=== PATIENT | female | born 1960 | race Caucasian/White ===

== ENCOUNTER → 2018-05-02 11:03 | Outpatient (CLI) | payer OTHER, SELFPAY ==
[2018-05-02 11:42] LABS: Add Manual Diff / Slide Review NO; Basophils Percent Auto 0.9 % (0-2); Eosinophils Percent Auto 2.5 % (2-4); Hemoglobin 13.5 g/dL (12.0-16.0); Lymphocytes Percent Auto 36.5 % (25-40); Mean Corpuscular HGB Conc 33.8 % (30-36); Mean Corpuscular Volume 83.1 fL (80-100); Monocytes Percent Auto 8.7 % (3-14); Neutrophils Absolute Auto 2900 /uL (3000-5900); Neutrophils Percent Auto 51.4 % (50-75); Platelet Count 248 X10^3/uL (150-400); Red Blood Cell Count 4.82 X10^6/uL (4.0-5.2); Red Cell Distribution Width 13.6 % (11.6-14.8); White Blood Cell Count 5.7 X10^3/uL (4.5-11.0)
[2018-05-02 11:51] LABS: Alanine Aminotransferase 29 IU/L (9-52); Albumin 4.1 g/dL (3.5-5.0); Albumin Globulin Ratio 1.4 (1.0-2.8); Alkaline Phosphatase 46 U/L (38-126); Aspartate Aminotransferase 24 IU/L (14-36); BUN Creatinine Ratio 33.3 (6-22); Bilirubin Total 0.5 mg/dL (0.2-1.3); Blood Urea Nitrogen 20 mg/dL (7-17); Calcium 9.7 mg/dL (8.4-10.2); Carbon Dioxide 26 mmol/L (22-32); Chloride 103 mmol/L (98-107); Estimated Glomerular Filt Rate > 60.0 mL/min (>60); Glucose 95 mg/dL (70-100); HEMOLYSIS < 15 (0-50); Lactate Dehydrogenase 390 U/L (313-618); Potassium 4.5 mmol/L (3.4-5.1); Sodium 137 mmol/L (137-145); Total Protein 7.1 g/dL (6.3-8.2)
== END ==
PROVIDERS: Family Provider Internal Medicine; PCP Internal Medicine; Visit Provider Nurse Practitioner Gerontology
DX: C82.90 Follicular lymphoma, unspecified, unspecified site (principal)
CPT/HCPCS: 36415; 80053; 83615; 85025

== ENCOUNTER → 2019-03-22 09:19 | Outpatient (CLI) | payer OTHER, SELFPAY ==
--- NOTE | 2019-03-22 09:23 | DI.CT.S_ITS ---
PROCEDURE: CT CHEST ABD PEL W CON INDICATIONS: f/u lymphoma TECHNIQUE: After the administration of oral and intravenous contrast, 5 mm thick sections acquired from the lung apices to the symphysis. 5 mm coronal and sagittal reformats were performed, with additional 7 mm coronal MIP reformats through the lungs. For radiation dose reduction, the following was used: automated exposure control, adjustment of mA and/or kV according to patient size. COMPARISON: [facility], CT, ABDOMEN/PELVIS WITH CONTRAST, 03/12/2017, 10:58. [facility], CT, CHEST/ABD/PEL WITH CONTRAST, 09/15/2017, 12:01. FINDINGS: Image quality: Excellent. CHEST: Lungs and pleura: No acute airspace opacities. No pleural effusions or pneumothorax. Central and peripheral airways appear patent and normal in caliber. Mediastinum: Heart size is normal. No pericardial effusion. No mediastinal or hilar adenopathy by size criteria. Thoracic aorta and central pulmonary arteries are normal in size. Esophagus is normal in caliber. No hiatal hernia. Chest wall: No new axillary or supraclavicular adenopathy by size criteria but at the right axilla several previously identified moderately enlarged nodes have slightly enlarged further, with maximal axial dimension having increased by approximately 2-3 mm. The largest node in this area measures 2.1 cm AP and 2.8 cm transverse (series 2 image 16). Thyroid gland appears normal. ABDOMEN: Solid organs: Liver is normal in size and enhancement. Gallbladder appears normal. Biliary system is non dilated. Pancreas enhances normally. Spleen is normal in size and enhancement. No adrenal nodules. Kidneys demonstrate normal size and enhancement, without hydronephrosis. Peritoneum and bowel: Bowel loops demonstrate normal wall thickness and caliber. No free fluid or air. Nodes and vessels: No new retroperitoneal or mesenteric adenopathy by size criteria, and clustered lymph nodes that are mildly enlarged at the periaortic retroperitoneum and within the root of the small bowel mesentery at this axial level have not changed. Aorta and inferior vena cava are normal in size. Miscellaneous: No ventral hernias. PELVIS: Genitourinary: Bladder wall thickness is normal. Miscellaneous: No inguinal hernias or adenopathy. Bones: No suspicious bony lesions. No vertebral body compression fractures. IMPRESSION: 1. Several moderately enlarged nodes in the right axilla have mildly increased in size by only approximately 3-4 mm and no new lymph nodes in this area have developed. 2. There is stable appearance of an increased number of small nodes and several mildly enlarged nodes also previously present at the periaortic retroperitoneum and the adjacent root of the small bowel mesentery at the axial level of the mid kidneys, none of which appear to have enlarged. Dictated by: Mike Chin M.D. on 03/22/2019 at 13:12 Approved by: Mike Chin M.D. on 03/22/2019 at 13:20
[2019-03-22 10:42] LABS: Add Manual Diff / Slide Review NO; Basophils Absolute Auto 100 /uL (0-100); Basophils Percent Auto 1.4 % (0-2); Eosinophils Absolute Auto 200 /uL (0-450); Eosinophils Percent Auto 3.8 % (2-4); Hematocrit 41.2 % (36-46); Lymphocytes Absolute Auto 1800 /uL (1100-4500); Lymphocytes Percent Auto 42.1 % (25-40); Mean Corpuscular Volume 82.2 fL (80-100); Monocytes Absolute Auto 300 /uL (0-900); Monocytes Percent Auto 8.2 % (3-14); Neutrophils Absolute Auto 1900 /uL (1500-7000); Neutrophils Percent Auto 44.5 % (50-75); Platelet Count 262 X10^3/uL (150-400); Red Blood Cell Count 5.01 X10^6/uL (4.0-5.2); Red Cell Distribution Width 13.3 % (11.6-14.8); White Blood Cell Count 4.2 X10^3/uL (4.5-11.0)
[2019-03-22 10:55] LABS: Alanine Aminotransferase 23 IU/L (9-52); Albumin 4.1 g/dL (3.5-5.0); Albumin Globulin Ratio 1.5 (1.0-2.8); Alkaline Phosphatase 48 U/L (38-126); Aspartate Aminotransferase 26 IU/L (14-36); BUN Creatinine Ratio 18.6 (6-22); Bilirubin Total 0.6 mg/dL (0.2-1.3); Blood Urea Nitrogen 13 mg/dL (7-17); Calcium 9.5 mg/dL (8.4-10.2); Carbon Dioxide 27 mmol/L (22-32); Chloride 105 mmol/L (98-107); Estimated Glomerular Filt Rate > 60.0 mL/min (>60); Globulin 2.8 g/dL (1.7-4.1); Glucose 78 mg/dL (70-100); HEMOLYSIS < 15 (0-50); Lactate Dehydrogenase 404 U/L (313-618); Potassium 3.8 mmol/L (3.4-5.1); Sodium 139 mmol/L (137-145); Total Protein 6.9 g/dL (6.3-8.2)
[2019-03-22 10:56] LABS: Cholesterol 190 mg/dL (140-199); HDL Cholesterol 51 mg/dL (40-60); LDL Cholesterol Calculated 129 mg/dL (<100); Triglycerides 50 mg/dL (35-150)
== END ==
PROVIDERS: Family Provider Internal Medicine; PCP Family Medicine
DX: C82.90 Follicular lymphoma, unspecified, unspecified site (principal); Z13.220 Encounter for screening for lipoid disorders
CPT/HCPCS: 36415; 71260; 74177; 80053; 80061; 83615; 85025; Q9967

== ENCOUNTER → 2019-03-29 11:00 | Oncology outpatient (ONC) | payer OTHER, SELFPAY ==
[2019-03-07 09:58] VITALS: BP 136/79; PULSE 62; RESP 16; TEMP 36.9; O2SAT 95
--- NOTE | 2019-03-07 10:11 | ONC.PN ---
PN -Subjective Interval history: Diagnosis: Follicular lymphoma, grade 1-2, clinically stage III Previous treatment: None Interval history: The patient is a 59-year-old woman who returns today for follow-up. She was diagnosed with follicular lymphoma based on excision of an axillary lymph node about 2 years ago. She has not had any symptoms related to her lymphoma has not required any therapy. About 2 weeks ago, she had feeling of fullness or pressure in the axilla bilaterally and in the inguinal area as well as in the mid left abdomen. She had some intermittent burning sensation in these areas. Over the last few days, the symptoms have begun to subside. She has not had any fevers or chills. She has had some hot flashes but no night sweats. Appetite has been good. She has not been losing any weight. No nausea or vomiting. No diarrhea. She has not noticed any shortness of breath or cough. She has not had any recent infections or viral syndromes. She denies any other changes in her health. Her past medical history is otherwise fairly unremarkable. She did have a history of colitis many years ago. She has had some prior fractures. Her only medications include oxybutynin and Celexa. Social history: She is . She and her work in [employer] business. She quit smoking in 2010. She denies any alcohol use. - Patient Self-Reported Symptoms SR Cardiovascular issues: Shortness of breath with activity or lying flat SR Hematologic issues: Swollen lymph nodes SR Endocrine issues: Hot flashes Home Medications and Allergies Home Medications Medication Instructions Recorded Confirmed Type Vitamin B Complex4 (#B COMPLEX) 1 tab PO #0 05/18/11 09/12/18 History CHOLECALCIFEROL (VITAMIN D3) 5,000 units PO QDAY #0 11/23/12 09/12/18 History (VITAMIN D) fluticasone propionate 2 spray INTRANASAL QDAY #1 inh 12/20/12 09/12/18 Rx aspirin 81 mg PO HS #0 04/19/17 09/12/18 History [oregano oil] #0 12/13/17 09/12/18 History oxybutynin chloride 5 mg tablet 5 mg PO BID #180 tab 02/13/19 Rx citalopram [Celexa] 10 mg PO QDAY 03/07/19 History krill oil 03/07/19 History [id number] acid 03/07/19 History [ Multi] vitamin E 180 03/07/19 History Allergies Allergy/AdvReac Type Severity Reaction Status Date / Time No Known Drug Allergies Allergy Unverified 09/12/18 10:02 Exam Vital signs: Vital Signs Temp Pulse Resp BP Pulse Ox 03/07/19 09:58 98.4 F 62 16 136/79 95 Intake and Output 03/06/19 03/07/19 03/07/19 23:59 07:59 15:59 Other: Weight 75.3 kg Patient Weight 03/07/19 23:59 Weight 75.3 kg - Constitutional positive no acute distress, positive average body habitus - Routine HEENT Exam Head: Present: normocephalic, atraumatic Eye: Present: EOMI, PERRL. Absent: conjunctival icterus, scleral injection ENT: Present: mucous membranes moist, oropharynx clear - Routine Neck Exam Present: supple. Absent: lymphadenopathy, thyromegaly - Routine Chest/Breast/Axilla Exam Axillae: Absent: lymphadenopathy - Routine Respiratory Exam Present: Clear to auscultation bilaterally. Absent: rales, wheezes - Routine Cardiovascular Exam Present: RRR, S1, S2. Absent: murmur - Routine Abdominal Exam Present: soft, normoactive bowel sounds. Absent: tenderness, organomegaly, mass Comments: There is no inguinal adenopathy. - Routine Extremities Exam Absent: cyanosis, clubbing, edema - Routine Skin Exam Present: intact. Absent: petechiae, rash - Routine Neurological Exam Present: alert, oriented X3 - Routine Psychiatric Exam Present: normal affect, normal thought process Assessment and Plan (1) Follicular lymphoma Current visit: No Status: Chronic 59-year-old woman with a history of follicular lymphoma. She has had some recent discomfort in the axilla and inguinal areas. I do not feel any adenopathy on exam. It has been more than a year since her last visit. I think it is reasonable to get a CT scan to evaluate the status of her adenopathy. She will return to clinic in about 3 weeks or so for follow-up.
[2019-03-29 11:56] VITALS: BP 128/77; PULSE 52; RESP 18; TEMP 36.7; O2SAT 99
--- NOTE | 2019-03-29 12:19 | P.PNONC_ITS ---
PN -Subjective Interval history: Diagnosis: Follicular lymphoma, grade 1-2, clinically stage III Previous treatment: None Interval history: The patient is a 59-year-old woman who returns today for follow-up. She was diagnosed with follicular lymphoma based on excision of an axillary lymph node about 2 years ago. She has not had any symptoms related to her lymphoma has not required any therapy. Recently, she had noticed some feeling of fullness and pressure in the axilla and in the groin. She was not having any fevers chills or night sweats. She is not having any persistent pain although she did have occasional episodes of a burning-like pain in the lymph nodes. No shortness of breath or cough. No GI complaints. She did not have any other changes in her health. She did have a CT scan done that showed slight enlargement of her right axillary node by 3 or 4 mm but no new adenopathy and no other progression. Over the last week or 2, the feeling of fullness has subsided. Her past medical history is otherwise fairly unremarkable. She did have a history of colitis many years ago. She has had some prior fractures. Her only medications include oxybutynin and Celexa. Social history: She is . She and her work in [employer] business. She quit smoking in 2010. She denies any alcohol use. - Patient Self-Reported Symptoms SR Cardiovascular issues: Shortness of breath with activity or lying flat SR Hematologic issues: Swollen lymph nodes SR Endocrine issues: Hot flashes Home Medications and Allergies Home Medications Medication Instructions Recorded Confirmed Type Vitamin B Complex4 (#B COMPLEX) 1 tab PO #0 05/18/11 03/14/19 History CHOLECALCIFEROL (VITAMIN D3) 5,000 units PO QDAY #0 11/23/12 03/29/19 History (VITAMIN D) fluticasone propionate 2 spray INTRANASAL QDAY #1 inh 12/20/12 03/29/19 Rx aspirin 81 mg PO HS #0 04/19/17 03/29/19 History [oregano oil] #0 12/13/17 03/14/19 History citalopram [Celexa] 10 mg PO QDAY 03/07/19 03/29/19 History krill oil 500 mg DAILY 03/07/19 03/29/19 History [id number] acid 800 mg DAILY 03/07/19 03/29/19 History [ Multi] vitamin E 180 03/07/19 03/14/19 History oxybutynin chloride 5 mg PO DAILY 03/29/19 03/29/19 History Allergies Allergy/AdvReac Type Severity Reaction Status Date / Time No Known Drug Allergies Allergy Unverified 09/12/18 10:02 Exam Vital signs: Vital Signs Temp Pulse Resp BP Pulse Ox 03/29/19 11:56 98.1 F 52 L 18 128/77 99 Intake and Output 03/28/19 03/29/19 03/29/19 23:59 07:59 15:59 Other: Weight 74.3 kg Patient Weight 03/29/19 23:59 Weight 74.3 kg - Constitutional positive no acute distress, positive average body habitus Comments: She is not further examined. Results - Imaging CT scan - abdomen: image reviewed CT scan - chest: image reviewed CT scan - pelvis: image reviewed (Prominent right axillary adenopathy.) Assessment and Plan (1) Follicular lymphoma Current visit: No Status: Chronic 59-year-old woman with a history of follicular lymphoma. Her CT scan shows minimal change in her axillary adenopathy and no new areas of progression. She has no indication for treatment. She will return to clinic in about 6 months for follow-up.
--- NOTE | 2019-07-25 15:53 | PC.NURSE ---
SECOND OPINION REFERRAL REQUEST: PATIENT CALLED REQUESTING DR. SR TO FAX A REFERRAL FOR A SECOND OPINION TO [facility], ATTN: ARUN, PHONE: [phone], FAX [phone]. REQUEST MADE WITH THIS NOTE TO DR. SR TO ADD TO ORDERS PANEL AND TO DORYS TO SCHEDULE.
--- NOTE | 2019-07-31 16:19 | ONC.SCHED ---
Tried calling patient to let her know I have the referral entered and I am in the process of sending the paperwork now.
== END ==
PROVIDERS: Family Provider Internal Medicine; PCP Family Medicine
DX: C82.24 Follicular lymphoma grade III, unspecified, lymph nodes of axilla and upper limb (principal)
CPT/HCPCS: 99214

== ENCOUNTER → 2019-04-12 09:00 | Outpatient (CLI) | payer OTHER, SELFPAY ==
--- NOTE | 2019-04-12 | DI.MG.S_ITS ---
BILATERAL DIGITAL SCREENING MAMMOGRAM 3D/2D WITH CAD: 04/12/2019 CLINICAL: Routine screening. Comparison is made to exams dated: 01/19/2018 mammogram, 12/07/2016 mammogram, and 11/27/2015 mammogram, and CT Chest Abdomen Pelvis 03/22/19 - [facility]. The tissue of both breasts is heterogeneously dense. This may lower the sensitivity of mammography. Current study was also evaluated with a Computer Aided Detection (CAD) system. There is an oval enlarged node in the right breast posterior depth superior region seen on the mediolateral oblique view only. This is increased in size. No other significant masses, calcifications, or other findings are seen in either breast. IMPRESSION: NEGATIVE The oval enlarged nodes in the right axilla are consistent with known lymphoma. Clinical correlation is recommended including with recent CT Chest Abdomen Pelvis from 03/22/19. There is no mammographic evidence of malignancy in the right or left breast. A 1 year screening mammogram is recommended. This exam was interpreted at Station ID: [id number]. NOTE: For mammograms, a report in lay terms will be sent to the patient. Approximately 15% of breast malignancies will not be visualized mammographically. In the management of a palpable breast mass, a negative mammogram must not discourage biopsy of a clinically suspicious lesion. Electronically Signed By: Joe hopson/:04/12/2019 11:08:22 copy to: Hina Vaughn letter sent: Clinical Evaluation ACR BI-RADS Category 1: Negative 3341F
== END ==
PROVIDERS: PCP Family Medicine; Visit Provider Family Medicine
DX: Z12.31 Encounter for screening mammogram for malignant neoplasm of breast (principal)
CPT/HCPCS: 77063; 77067

== ENCOUNTER 2020-05-01 19:57 | Emergency (ER) | payer OTHER, SELFPAY ==
[2020-05-01 20:08] VITALS: BP 153/65; PULSE 76; RESP 18; TEMP 36.6; O2SAT 98
[2020-05-01] MEDS: DOXYCYCLINE HYCLATE 100 MG TABLET PO (20:17)
--- NOTE | 2020-05-01 20:17 | ED_ITS ---
HPI - Wound/Laceration <ASHLEY Crook - Last Filed: 05/01/20 20:42> General Chief Complaint: Wound/Laceration Stated Complaint: LEFT THUMB LACERATION Time Seen by Provider: 05/01/20 20:03 Source: patient Mode of arrival: Ambulatory Limitations: no limitations History of Present Illness HPI narrative: 60-year-old female presents to the emergency department for increasing redness to her laceration on her left thumb. She states 3 days ago she was skinning a black bear when she cut herself in the thumb with a knife. She noticed increased redness and swelling yesterday that worsened today. Patient noticed increasing tenderness to this area. She reports clear watery discharge, denies past. Patient denies fevers, chills, difficulty moving her thumb, chest pain, shortness of breath, dizziness, nausea, vomiting, diarrhea, or any other concerns. Related Data Home Medications Medication Instructions Recorded Confirmed Vitamin B Complex4 (#B COMPLEX) 1 tab PO #0 05/18/11 03/14/19 CHOLECALCIFEROL (VITAMIN D3) 5,000 units PO QDAY #0 11/23/12 03/29/19 (VITAMIN D) aspirin 81 mg PO HS #0 04/19/17 03/29/19 [oregano oil] #0 12/13/17 03/14/19 krill oil 500 mg DAILY 03/07/19 03/29/19 [id number] acid 800 mg DAILY 03/07/19 03/29/19 [ Multi] vitamin E 180 03/07/19 03/14/19 Previous Rx's Medication Instructions Recorded fluticasone propionate 2 spray INTRANASAL QDAY #1 inh 12/20/12 oxybutynin chloride 5 mg tablet 5 mg PO BID #180 tab 04/01/20 citalopram 20 mg tablet 10 mg PO QDAY #45 tab 04/10/20 doxycycline hyclate 100 mg PO BID 7 Days #14 cap 05/01/20 Allergies Allergy/AdvReac Type Severity Reaction Status Date / Time No Known Drug Allergies Allergy Unverified 09/12/18 10:02 Review of Systems <ASHLEY Crook - Last Filed: 05/01/20 20:42> Review of Systems Narrative: REVIEW OF SYSTEMS: GENERAL: Denies fever or chills. HENT: Denies head trauma. CARDIOVASCULAR: Denies syncope. MUSCULOSKELETAL: Denies weakness, or deformities. INTEGUMENTARY: Complains of laceration to thumb, see HPI. NEURO: Denies numbness or tingling. Patient History <ASHLEY Crook - Last Filed: 05/01/20 20:42> Medical History Chicken pox (Resolved ~1961) Colitis (Chronic ~2010) Depression (Chronic) Heavy menstrual period (Chronic ~1969) Measles (Resolved ~1959) Mumps (Resolved ~1960) Surgical History Anesthesia (Resolved) History of elbow surgery (Resolved ~1973) History of foot surgery (Resolved ~1977) Lymphoma (Resolved ~2016) Status post hysterectomy (~1997) Status post ovarian cystectomy (~1987) Family History Father Age: 82 Heart disease High cholesterol Mini stroke Diabetes mellitus Dementia Grandfather Heart disease Stroke Grandmother Heart disease High cholesterol Mental health problem Stroke Mother Age: 79 A-fib Hypertension Asthma Grandfather Heart disease Heart attack Sister Age: 50 Hypertension Depression Asthma Grandmother No problems noted. Social History Smoking Status: Former smoker Smoking Status: Former smoker Substance Use Type: does not use Exam <ASHLEY Crook - Last Filed: 05/01/20 20:42> Initial Vital Signs Initial Vital Signs: Vital Signs Temperature 98 F 05/01/20 20:08 Pulse Rate 76 05/01/20 20:08 Respiratory Rate 18 05/01/20 20:08 Blood Pressure 153/65 H 05/01/20 20:08 Pulse Oximetry 98 05/01/20 20:08 PHYSICAL EXAMINATION: GENERAL: Well groomed, alert, and cooperative. Answers questions promptly and appropriately. Vital signs noted. HENT: Normocephalic, atraumatic. RESPIRATORY: Normal respiratory rate, trachea midline, airway patent. No stridor, nasal flaring or accessory muscle use. MUSCULOSKELETAL: Normal gait and coordination. Equal tone and mass bilaterally. EXTREMITIES: CMS intact. Moves all extremities. SKIN: Warm, dry, soft, appropriate color for ethnicity. 3 cm laceration noted t o the radial aspect of distal phalanx of the right thumb that slightly extends into the crease of the DIP joint. Small amount of swelling, surrounding erythema, and no fluctuance or purulent discharge. Increased temp to palpation of this area. No tenderness to palpation of ulnar aspect of DIP joint. NEURO: Alert and Oriented X 3. Good coordination. PSYCH: Appropriate affect and mood. <Jonas Trejo MD - Last Filed: 05/02/20 02:29> Initial Vital Signs Initial Vital Signs: Vital Signs Temperature 98 F 05/01/20 20:08 Pulse Rate 76 05/01/20 20:08 Respiratory Rate 18 05/01/20 20:08 Blood Pressure 153/65 H 05/01/20 20:08 Pulse Oximetry 98 05/01/20 20:08 Course <ASHLEY Crook - Last Filed: 05/01/20 20:42> Course Course Narrative: Patient was given a dose of antibiotics in the emergency department. Orders Ordered: Discontinued Medications Doxycycline Hyclate (Vibramycin) 100 mg PO NOW ONE Stop: 05/01/20 20:13 Last Admin: 05/01/20 20:17 Dose: 100 mg [facility] Vital Signs Vital signs: Vital Signs - 8 hr 05/01/20 20:08 05/01/20 20:32 Temperature 98 F Pulse Rate 76 89 Respiratory Rate 18 16 Blood Pressure 153/65 H 149/64 H Pulse Oximetry 98 99 <Jonas Trejo MD - Last Filed: 05/02/20 02:29> Orders Ordered: Discontinued Medications Doxycycline Hyclate (Vibramycin) 100 mg PO NOW ONE Stop: 05/01/20 20:13 Last Admin: 05/01/20 20:17 Dose: 100 mg [facility] Vital Signs Vital signs: Vital Signs - 8 hr 05/01/20 20:08 05/01/20 20:32 Temperature 98 F Pulse Rate 76 89 Respiratory Rate 18 16 Blood Pressure 153/65 H 149/64 H Pulse Oximetry 98 99 MDM - Wound/Laceration <ASHLEY Crook - Last Filed: 05/01/20 20:42> Medical Records Attestation: I reviewed the patient's medical records. Lab Data Attestation: I reviewed the patient's lab results. MDM Narrative Medical decision making narrative: 60-year-old female presents emergency department for increased redness around the laceration of right. Concern for cellulitis due to visualized redness, tenderness, and increased temp. Discussed with patient doxycycline is advised given involvement of bear/animal hide. No concerns for sepsis or septic joint due to lack of swelling or tenderness to palpation of joint, non tachycardic, afebrile, and hemodynamically stable. Patient was encouraged to follow up with her primary care provider in 1-2 weeks for further evaluation. Return precautions given for new or worsening symptoms. Patient agreed to plan of care verbalized understanding. Discharge Plan Departure Patient Disposition: Home Clinical Impression: Cellulitis Qualifiers: Site of cellulitis: extremity Site of cellulitis of extremity: finger Laterality: right Qualified Code(s): L03.011 - Cellulitis of right finger Discharge Date/Time: 05/01/20 20:33 Instructions: DI for Laceration Repair Activity Restrictions/Additional Instructions: Thank you for entrusting me with your care today. As discussed, I have given you prescription for the antibiotic doxycycline to cover bacteria that is present and animal, please take this as directed. Monitor your wound for worsening signs of infection such as increased redness, pus, or severe pain--if this occurs please be re-evaluated. Follow-up up with your primary care provider in 1-2 weeks if symptoms continue. Return emergency department for any new or worsening symptoms such as chest pain, shortness of breath, high fevers, or any other concerns. Prescriptions: New doxycycline hyclate 100 mg capsule 100 mg PO BID 7 Days Qty: 14 RF: 0 No Action Vitamin B Complex4 (#B COMPLEX) 1 tab PO Qty: 0 RF: 0 CHOLECALCIFEROL (VITAMIN D3) (VITAMIN D) 5,000 units PO QDAY Qty: 0 RF: 0 fluticasone propionate 16 GM spray,suspension 2 spray Intranasal QDAY Qty: 1 RF: 6 aspirin 81 MG tablet,chewable 81 mg PO HS Qty: 0 RF: 0 [oregano oil] Qty: 0 RF: 0 oxybutynin chloride 5 mg tablet 5 mg PO BID Qty: 180 RF: 1 citalopram [Celexa] 20 mg tablet 10 mg PO QDAY Qty: 45 RF: 0 vitamin E 100 unit Capsule 180 RF: 0 krill oil 500 mg Capsule 500 mg DAILY RF: 0 Multi 27-800 mg-mcg Tablet 800 mg DAILY RF: 0 Referrals: Milli Schafer DO [Primary Care Provider] - <Jonas Trejo MD - Last Filed: 05/02/20 02:29> Cosign ED Attending Cosignature Attestation: I was immediately available in the department for consultation. This documentation has been reviewed and I agree with assessment and plan. Supervised by Jonas Trejo MD
--- NOTE | 2020-05-01 20:31 | PC.NURSE ---
Pt states cut her L thumb skinning a black bear on Wednesday, L thumb is red and swollen at distal phalanx with redness starting to radiate up wrist.
[2020-05-01 20:32] VITALS: BP 149/64; PULSE 89; RESP 16; O2SAT 99
== END 2020-05-01 20:33 | disposition home or self-care (01) ==
PROVIDERS: Emergency Provider Nurse Practitioner; PCP Family Medicine
DX: L03.012 Cellulitis of left finger (principal)
CPT/HCPCS: 99282; 99283

== ENCOUNTER → 2020-05-07 11:12 | Outpatient (CLI) | payer OTHER, SELFPAY | PROVIDERS: PCP Family Medicine; Visit Provider Nurse Practitioner | DX: L08.9 Local infection of the skin and subcutaneous tissue, unspecified (principal); S61.011A Laceration without foreign body of right thumb without damage to nail, initial encounter | CPT/HCPCS: 87070; 87075; 87205 ==

== ENCOUNTER → 2020-05-14 09:27 | Outpatient (CLI) | payer OTHER, SELFPAY ==
[2020-05-14 10:00] LABS: Hematocrit 40.8 % (36-46); Hemoglobin 13.8 g/dL (12.0-16.0); Mean Corpuscular HGB Conc 33.8 % (30-36); Mean Corpuscular Hemoglobin 28.3 PG (26-34); Mean Corpuscular Volume 83.6 fL (80-100); Platelet Count 269 X10^3/uL (150-400); Red Blood Cell Count 4.88 X10^6/uL (4.0-5.2); Red Cell Distribution Width 13.4 % (11.6-14.8); White Blood Cell Count 4.1 X10^3/uL (4.5-11.0)
[2020-05-14 10:09] LABS: Prothrombin Time 11.4 SECONDS (10.1-12.7)
[2020-05-14 10:10] LABS: Neutrophils Absolute Manual 1763 /uL (3000-5900); RBC Morphology Normal Morphology; Total Cells Counted 100
== END ==
PROVIDERS: PCP Family Medicine; Referring Provider Nurse Practitioner; Visit Provider Nurse Practitioner
DX: C85.90 Non-Hodgkin lymphoma, unspecified, unspecified site (principal); R23.3 Spontaneous ecchymoses
CPT/HCPCS: 36415; 85025; 85610

== ENCOUNTER → 2020-06-17 11:23 | Outpatient (CLI) | payer OTHER, SELFPAY ==
--- NOTE | 2020-06-17 11:24 | DI.MG.S_ITS ---
BILATERAL DIGITAL SCREENING MAMMOGRAM 3D/2D WITH CAD: 06/17/2020 CLINICAL: Routine screening. Comparison is made to exams dated: 04/12/2019 mammogram, 01/19/2018 mammogram, and 12/07/2016 mammogram - [facility]. The tissue of both breasts is heterogeneously dense. This may lower the sensitivity of mammography. Current study was also evaluated with a Computer Aided Detection (CAD) system. No significant masses, calcifications, or other findings are seen in either breast. There has been no significant interval change. IMPRESSION: NEGATIVE There is no mammographic evidence of malignancy. A 1 year screening mammogram is recommended. This exam was interpreted at Station ID: [id number]. NOTE: For mammograms, a report in lay terms will be sent to the patient. Approximately 15% of breast malignancies will not be visualized mammographically. In the management of a palpable breast mass, a negative mammogram must not discourage biopsy of a clinically suspicious lesion. Electronically Signed By: Bartolome fonseca/mandy:06/17/2020 19:58:41 copy to: Hina Vaughn letter sent: Normal Exam ACR BI-RADS Category 1: Negative 3341F
== END ==
PROVIDERS: PCP Family Medicine; Referring Provider Family Medicine; Visit Provider Family Medicine
DX: Z12.31 Encounter for screening mammogram for malignant neoplasm of breast (principal)
CPT/HCPCS: 77063; 77067

== ENCOUNTER → 2020-06-27 09:44 | Outpatient (CLI) | payer OTHER, SELFPAY ==
[2020-06-27 13:00] LABS: Add Manual Diff / Slide Review NO; Basophils Absolute Auto 0 /uL (0-100); Basophils Percent Auto 0.9 % (0-2); Eosinophils Absolute Auto 100 /uL (0-450); Eosinophils Percent Auto 2.9 % (2-4); Hematocrit 42.7 % (36-46); Hemoglobin 14.3 g/dL (12.0-16.0); Lymphocytes Absolute Auto 1800 /uL (1100-4500); Lymphocytes Percent Auto 41.8 % (25-40); Mean Corpuscular HGB Conc 33.5 % (30-36); Mean Corpuscular Hemoglobin 28.4 PG (26-34); Mean Corpuscular Volume 84.7 fL (80-100); Monocytes Absolute Auto 400 /uL (0-900); Monocytes Percent Auto 9.4 % (3-14); Neutrophils Absolute Auto 1900 /uL (1500-7000); Platelet Count 258 X10^3/uL (150-400); Red Blood Cell Count 5.04 X10^6/uL (4.0-5.2); Red Cell Distribution Width 13.7 % (11.6-14.8); White Blood Cell Count 4.3 X10^3/uL (4.5-11.0)
[2020-06-27 13:41] LABS: Alanine Aminotransferase 18 IU/L (<35); Albumin 4.4 g/dL (3.5-5.0); Albumin Globulin Ratio 1.5 (1.0-2.8); Alkaline Phosphatase 54 U/L (38-126); Aspartate Aminotransferase 28 IU/L (14-36); BUN Creatinine Ratio 22.7 (6-22); Bilirubin Total 0.5 mg/dL (0.2-1.3); Blood Urea Nitrogen 17 mg/dL (7-17); Carbon Dioxide 29 mmol/L (22-32); Chloride 105 mmol/L (98-107); Estimated Glomerular Filt Rate > 60.0 mL/min (>60); Globulin 2.9 g/dL (1.7-4.1); Glucose 70 mg/dL (80-110); HEMOLYSIS < 15 (0-50); Potassium 4.9 mmol/L (3.4-5.1); Sodium 141 mmol/L (137-145); Total Protein 7.3 g/dL (6.3-8.2)
== END ==
PROVIDERS: PCP Family Medicine; Referring Provider Family Medicine; Visit Provider Family Medicine
DX: C85.90 Non-Hodgkin lymphoma, unspecified, unspecified site (principal)
CPT/HCPCS: 36415; 80053; 85025

== ENCOUNTER → 2020-11-19 14:03 | Outpatient (CLI) | payer OTHER, SELFPAY ==
[2020-11-19 14:51] LABS: Add Manual Diff / Slide Review NO; Basophils Absolute Auto 100 /uL (0-100); Basophils Percent Auto 0.9 % (0-2); Eosinophils Absolute Auto 100 /uL (0-450); Eosinophils Percent Auto 2.2 % (2-4); Hematocrit 43.8 % (36-46); Hemoglobin 14.3 g/dL (12.0-16.0); Lymphocytes Absolute Auto 2200 /uL (1100-4500); Mean Corpuscular HGB Conc 32.7 % (30-36); Mean Corpuscular Hemoglobin 27.7 PG (26-34); Mean Corpuscular Volume 84.7 fL (80-100); Monocytes Absolute Auto 400 /uL (0-900); Monocytes Percent Auto 6.6 % (3-14); Neutrophils Absolute Auto 3100 /uL (1500-7000); Neutrophils Percent Auto 52.3 % (50-75); Platelet Count 262 X10^3/uL (150-400); Red Blood Cell Count 5.17 X10^6/uL (4.0-5.2); Red Cell Distribution Width 13.4 % (11.6-14.8); White Blood Cell Count 5.9 X10^3/uL (4.5-11.0)
[2020-11-19 15:04] LABS: Alanine Aminotransferase 19 IU/L (<35); Albumin 4.4 g/dL (3.5-5.0); Albumin Globulin Ratio 1.5 (1.0-2.8); Alkaline Phosphatase 52 U/L (38-126); Aspartate Aminotransferase 26 IU/L (14-36); BUN Creatinine Ratio 33.8 (6-22); Bilirubin Total 0.3 mg/dL (0.2-1.3); Blood Urea Nitrogen 27 mg/dL (7-17); Calcium 9.7 mg/dL (8.4-10.2); Carbon Dioxide 31 mmol/L (22-32); Chloride 104 mmol/L (98-107); Estimated Glomerular Filt Rate > 60.0 mL/min (>60); Globulin 2.9 g/dL (1.7-4.1); Glucose 108 mg/dL (80-110); HEMOLYSIS < 15 (0-50); Lactate Dehydrogenase 387 U/L (313-618); Sodium 139 mmol/L (137-145); Total Protein 7.3 g/dL (6.3-8.2)
== END ==
PROVIDERS: PCP Family Medicine; Referring Provider Internal Medicine Hematology & Oncology; Visit Provider Internal Medicine Hematology & Oncology
DX: C82.90 Follicular lymphoma, unspecified, unspecified site (principal)
CPT/HCPCS: 36415; 80053; 83615; 85025

== ENCOUNTER → 2021-05-06 17:28 | Outpatient (CLI) | payer OTHER, SELFPAY ==
[2021-05-06 17:31] LABS: Bacteria Urine None Seen
[2021-05-06 18:25] LABS: Appearance Urine UA CLEAR; Bilirubin Urine UA NEGATIVE (NEGATIVE); Color Urine UA YELLOW; Glucose Urine UA NEGATIVE (Negative); Ketones Urine UA NEGATIVE (NEGATIVE); Leukocyte Esterase Urine UA 1+ (NEGATIVE); Nitrite Urine UA NEGATIVE (Negative); Occult Blood Urine UA 1+ (Negative); Protein Urine UA TRACE (Negative); Specific Gravity Urine UA 1.025 (1.000-1.035); Urobilinogen Urine UA 0.2 E.U./dL (0.2)
[2021-05-06 18:36] LABS: Calcium Oxalate Crystals Urine Moderate; Culture Indicated Urine Specimen Cultured; RBC Urine 0-1/HPF (0-5/HPF); WBC Urine 5-10/HPF (0-5/HPF)
== END ==
PROVIDERS: PCP Family Medicine; Referring Provider Family Medicine; Visit Provider Family Medicine
DX: R30.0 Dysuria (principal); R35.0 Frequency of micturition; R39.15 Urgency of urination
CPT/HCPCS: 81001; 87086

== ENCOUNTER → 2022-01-15 15:39 | Outpatient (CLI) | payer OTHER, SELFPAY | PROVIDERS: PCP Family Medicine; Visit Provider Physician Assistant | DX: R10.9 Unspecified abdominal pain (principal) | CPT/HCPCS: 87077; 87086; 87186 ==

== ENCOUNTER → 2022-02-13 15:02 | Outpatient (CLI) | payer OTHER, SELFPAY ==
[2022-02-13 15:26] LABS: Add Manual Diff / Slide Review NO; Basophils Absolute Auto 0 /uL (0-100); Basophils Percent Auto 0.5 % (0-2); Eosinophils Absolute Auto 100 /uL (0-450); Eosinophils Percent Auto 2.4 % (2-4); Hematocrit 40.8 % (36-46); Hemoglobin 13.7 g/dL (12.0-16.0); Lymphocytes Absolute Auto 2500 /uL (1100-4500); Lymphocytes Percent Auto 41.8 % (25-40); Mean Corpuscular HGB Conc 33.5 % (30-36); Mean Corpuscular Hemoglobin 28.7 PG (26-34); Mean Corpuscular Volume 85.7 fL (80-100); Monocytes Absolute Auto 500 /uL (0-900); Neutrophils Absolute Auto 2800 /uL (1500-7000); Neutrophils Percent Auto 47.3 % (50-75); Platelet Count 271 X10^3/uL (150-400); Red Blood Cell Count 4.77 X10^6/uL (4.0-5.2); Red Cell Distribution Width 13.2 % (11.6-14.8)
[2022-02-13 15:51] LABS: HEMOLYSIS 25 (0-50); Iron 100 ug/dL (37-170)
[2022-02-13 15:52] LABS: Alanine Aminotransferase 22 IU/L (<35); Albumin 4.4 g/dL (3.5-5.0); Albumin Globulin Ratio 1.5 (1.0-2.8); Alkaline Phosphatase 47 U/L (38-126); Aspartate Aminotransferase 30 IU/L (14-36); BUN Creatinine Ratio 23.9 (6-22); Bilirubin Total 0.3 mg/dL (0.2-1.3); Blood Urea Nitrogen 16 mg/dL (7-17); Calcium 9.5 mg/dL (8.4-10.2); Carbon Dioxide 28 mmol/L (22-32); Chloride 105 mmol/L (98-107); Estimated Glomerular Filt Rate > 60 mL/min (>60); Globulin 2.9 g/dL (1.7-4.1); Glucose 76 mg/dL (80-110); HEMOLYSIS < 15 (0-50); Potassium 3.7 mmol/L (3.4-5.1); Sodium 140 mmol/L (137-145); Total Protein 7.3 g/dL (6.3-8.2)
[2022-02-13 16:01] LABS: Percent Iron Saturation 35 % (15-50); Total Iron Binding Capacity 284 ug/dL (265-497); Transferrin 222 mg/dL (206-381)
[2022-02-13 16:23] LABS: Thyroid Stimulating Hormone 1.32 uIU/mL (0.47-4.68)
== END ==
PROVIDERS: PCP Family Medicine; Referring Provider Family Medicine; Visit Provider Family Medicine
DX: C85.90 Non-Hodgkin lymphoma, unspecified, unspecified site (principal); R53.83 Other fatigue; Z13.0 Encounter for screening for diseases of the blood and blood-forming organs and certain disorders involving the immune mechanism; Z13.29 Encounter for screening for other suspected endocrine disorder
CPT/HCPCS: 36415; 80053; 83540; 83550; 84443; 85025

== ENCOUNTER → 2022-07-14 14:14 | Outpatient (CLI) | payer OTHER, SELFPAY | PROVIDERS: PCP Family Medicine; Visit Provider Physician Assistant | DX: L29.9 Pruritus, unspecified (principal) | CPT/HCPCS: 87070; 87077; 87102; 87186; 87205 ==

== ENCOUNTER → 2022-11-06 09:47 | Outpatient (CLI) | payer OTHER, SELFPAY ==
--- NOTE | 2022-11-06 | DI.MG.S_ITS ---
BILATERAL DIGITAL SCREENING MAMMOGRAM 3D/2D WITH CAD: 11/06/2022 CLINICAL: Routine screening. Comparison is made to exams dated: 06/17/2020 mammogram, 04/12/2019 mammogram, and 01/19/2018 mammogram - [facility]. Both breasts are heterogeneously dense, which may obscure small masses (category c / 51-75% glandular tissue). Current study was also evaluated with a Computer Aided Detection (CAD) system. No significant masses, calcifications, or other findings are seen in either breast. There has been no significant interval change. IMPRESSION: NEGATIVE There is no mammographic evidence of malignancy. A 1 year screening mammogram is recommended. Based on the Tyrer Cuzick model (a risk assessment model) the patient's lifetime risk is 13.0% and her 10 year risk is 5.7%. According to the ACR, ACS, and NCCN guidelines, an annual breast MRI exam along with mammogram is recommended if the patient's lifetime risk is 20% or greater. This exam was interpreted at Station ID: [id number]. NOTE: For mammograms, a report in lay terms will be sent to the patient. Approximately 15% of breast malignancies will not be visualized mammographically. In the management of a palpable breast mass, a negative mammogram must not discourage biopsy of a clinically suspicious lesion. Electronically Signed By: Sotero Wolff M.D., jr/mandy:11/06/2022 14:02:42 copy to: Hina Vaughn letter sent: Normal Exam ACR BI-RADS Category 1: Negative 3341F
--- NOTE | 2022-11-06 09:52 | DI.RAD.S_ITS ---
PROCEDURE: XR ELBOW RT MIN 3V INDICATIONS: right elbow pain, previous fracture TECHNIQUE: 3 views of the elbow were acquired. COMPARISON: None. FINDINGS: Bones: No acute fractures or dislocations. No suspicious bony lesions. Soft tissues: No elbow joint effusion. No suspicious soft tissue calcifications. IMPRESSION: No acute osseous abnormality. If the symptoms persist, consider cross sectional imaging such as MRI or CT for further assessment. Approved by: Crispin Morales M.D. on 11/06/2022 at 11:23
== END ==
PROVIDERS: PCP Family Medicine; Referring Provider Family Medicine; Visit Provider Family Medicine
DX: Z12.31 Encounter for screening mammogram for malignant neoplasm of breast (principal); M25.521 Pain in right elbow
CPT/HCPCS: 73080; 77063; 77067

== ENCOUNTER 2023-12-28 14:38 | Emergency (ER) | payer OTHER, SELFPAY ==
[2023-12-28 14:41] VITALS: BP 171/81; PULSE 78; RESP 15; TEMP 36.5; O2SAT 98; BMI 28.7
== END 2023-12-28 17:00 | disposition left against medical advice (07) ==
PROVIDERS: Emergency Provider Emergency Medicine; PCP Family Medicine
CPT/HCPCS: 99281

== ENCOUNTER → 2024-01-10 12:34 | Outpatient (CLI) | payer OTHER, SELFPAY ==
[2024-01-13 16:59] LABS: ANA Screen, IFA Negative (.)
== END ==
PROVIDERS: PCP Family Medicine; Referring Provider Dermatology; Visit Provider Dermatology
DX: R21 Rash and other nonspecific skin eruption (principal)
CPT/HCPCS: 36415; 86038

== ENCOUNTER → 2024-08-09 11:20 | Outpatient (CLI) | payer OTHER, SELFPAY | PROVIDERS: PCP Family Medicine; Referring Provider Family Medicine; Visit Provider Family Medicine | DX: Z12.11 Encounter for screening for malignant neoplasm of colon (principal) | CPT/HCPCS: 82274 ==

== ENCOUNTER → 2025-02-23 09:57 | Outpatient (CLI) | payer MEDICARE, OTHER, SELFPAY ==
--- NOTE | 2025-02-23 10:02 | DI.RAD.S_ITS ---
PROCEDURE: XR SHOULDER RT MIN 2V INDICATIONS: shoulder pain TECHNIQUE: 3 views of the shoulder were acquired. COMPARISON: None. FINDINGS: Bones: No fractures or dislocations. No suspicious bony lesions. Visualized ribs appear intact. Soft tissues: No suspicious soft tissue calcifications. IMPRESSION: No acute bony abnormality. Dictated by: Jose Juan Lobato M.D. on 02/25/2025 at 0:16 Approved by: Jose Juan Lobato M.D. on 02/25/2025 at 0:16
== END ==
PROVIDERS: PCP Family Medicine; Referring Provider Family Medicine; Visit Provider Family Medicine
DX: M25.511 Pain in right shoulder (principal)
CPT/HCPCS: 73030

== ENCOUNTER → 2025-04-25 09:25 | Outpatient (CLI) | payer MEDICARE, OTHER, SELFPAY ==
--- NOTE | 2025-04-25 09:27 | DI.MRI.S_ITS ---
PROCEDURE: MR SHOULDER RT WO CON INDICATIONS: DISORDER OF RIGHT SHOULDER TECHNIQUE: Noncontrast oblique coronal T2 fast spin echo with fat saturation, oblique sagittal T1 spin echo and T2 fast spin echo with fat saturation, axial T1 spin echo and T2 fast spin echo with fat saturation through the shoulder. COMPARISON: [facility], CR, XR SHOULDER 2+ VIEWS RIGHT, 04/11/2025, 11:37. [facility], CR, XR KNEE ARTHRITIC SERIES BI, 04/11/2025, 11:37. FINDINGS: Image quality: Excellent. Rotator cuff: There is low-grade interstitial tear at the critical zone, extending to the footprint, at the junction of supraspinatus and infraspinatus (08:13). The teres minor is unremarkable. The subscapularis is unremarkable. No muscle edema or fatty atrophy. Bones and bursae: No significant degenerative changes of the acromioclavicular joint. Type 2 acromion. No os acromiale. Mild subacromial/subdeltoid bursitis. Mild subchondral cystic changes at the lesser tuberosity, reactive. No acute fracture mild chondrosis of the glenohumeral articulation with small area of full- thickness chondral loss in the superomedial humeral head. Capsule and soft tissues: Anterior superior labral tear, with 2 paralabral cysts, measuring 9 mm overall. Mild tenosynovitis of the extra-articular biceps tendon. The extra-articular biceps tendon is intact. Mild tendinosis of the intra-articular biceps tendon. Small glenohumeral effusion. No intra-articular body. IMPRESSION: 1. Mild degenerative changes of the glenohumeral joint. 2. Low-grade interstitial tear at the junction of the supraspinatus and infraspinatus. 3. Mild tenosynovitis of the extra-articular biceps tendon. 4. Labral tear with 2 paralabral cysts. Dictated by: Marjorie Wilkins M.D. on 04/25/2025 at 11:12 Approved by: Marjorie Wilkins M.D. on 04/25/2025 at 11:22
== END ==
LOC: MRI 09:26
PROVIDERS: PCP Family Medicine; Referring Provider Orthopaedic Surgery; Visit Provider Orthopaedic Surgery
DX: M75.111 Incomplete rotator cuff tear or rupture of right shoulder, not specified as traumatic (principal); M65.811 Other synovitis and tenosynovitis, right shoulder; S43.431A Superior glenoid labrum lesion of right shoulder, initial encounter; M75.51 Bursitis of right shoulder; M25.411 Effusion, right shoulder; X58.XXXA Exposure to other specified factors, initial encounter
CPT/HCPCS: 73221